=== PATIENT | male | born 1950 | race American Indian/Alaskan Native ===

== ENCOUNTER 2016-09-24 12:53 | Inpatient (IN) | payer MEDICARE ==
[2016-09-24] MEDS ORDERED: MAGNESIUM SULFATE 2GM/50ML 50 ML IV ONE ×2 (13:42→13:59)
[2016-09-24] MEDS ORDERED: ATROVENT IH ONE ×2 (13:51→13:59)
[2016-09-24] MEDS ORDERED: PROVENTIL IH ONE ×3 (13:51→16:21)
[2016-09-24] MEDS ORDERED: DECADRON IV ONE (15:16)
[2016-09-24 15:55] LABS: Basophils % (Auto) 0.3 % (0.0-1.8); Eosinophils % (Auto) 0.3 % (0.0-4.3); Hematocrit 37.4 % (35.5-45.6); Hemoglobin 11.9 gm/dl (11.8-15.2); Mean Corpuscular HGB Conc 32 % (32-34); Mean Corpuscular Hemoglobin 28 pg (28-32); Mean Corpuscular Volume 88 fl (84-94); Platelet Count 192 K/mm3 (140-440); Red Blood Count 4.23 M/mm3 (3.65-5.03); White Blood Count 6.2 K/mm3 (4.5-11.0)
[2016-09-24 16:38] LABS: Blood Urea Nitrogen 9 mg/dL (9-20); Calcium 8.2 mg/dL (8.4-10.2); Carbon Dioxide 21 mmol/L (22-30); Chloride 97.7 mmol/L (98-107); Glucose 137 mg/dL (75-100); Potassium 3.8 mmol/L (3.6-5.0); Sodium 134 mmol/L (137-145)
[2016-09-24 16:45] LABS: Anion Gap 19 mmol/L
--- NOTE | 2016-09-24 18:41 | Cat Scan Report ---
FINAL REPORT EXAM: CT CHEST W CON HISTORY: stridor/wheezing TECHNIQUE: High-resolution helical axial images were obtained of the chest without administration of iodinated contrast. Images are reconstructed in the sagittal and coronal planes. PRIORS: None. FINDINGS: There is a small pericardial effusion. The heart is mildly enlarged. The proximal trachea has an irregular shape. The AP distance is wider and transverse distance measuring 3.1 AP by 1.6 cm transverse. There is a polypoid excrescence in the proximal trachea. Hypo pharyngeal thickening is seen on the upper most image of the chest. There is a retrosternal thyroid. There is a left lower lobe consolidative infiltrate consistent with pneumonia. There is mild right basilar subsegmental atelectasis. Images through the upper abdomen show small bilateral renal cysts. There is multilevel thoracic spondylosis. The thoracic vertebrae are normal in height. There is asymmetric left gynecomastia. IMPRESSION: 1. Abnormal appearing proximal thoracic trachea may be a saber sheath trachea. Also, there is a polypoid excrescence that requires further evaluation with direct visualization. Another consideration would be a tracheal diverticulum. 2. Consolidative infiltrate in the posterior left lower lobe consistent with pneumonia. 3. Hypo pharyngeal thickening. Please see the report for the CT of the neck performed on the same date. 4. Retrosternal thyroid. 5. Asymmetric gynecomastia in the left breast. Further clinical workup to include physical exam and ultrasound recommended. Mammography may also be indicated.
--- NOTE | 2016-09-24 18:43 | Emergency Department Report ---
ED Shortness of Breath HPI - General Chief Complaint: Dyspnea/Respdistress Stated Complaint: PATRIC Time Seen by Provider: 09/24/16 15:15 Source: patient, EMS Mode of arrival: Stretcher Limitations: No Limitations - History of Present Illness Initial Comments: 66-year-old male with a past medical history of COPD, hypertension, and sleep apnea presents to the hospital complaints of shortness of breath or stridor. Patient was sent from his primary care doctor's office. Patient states he has had the exact same loud breathing times one year. Patient states that wheezing worsened today and went to the primary care doctor's office. Received albuterol 5 mg prior to arrival. No complaints of pain. Patient complains of several weeks of cough productive of beige sputum without fever. History of intubation due to 4 months ago. Patient states he had a recent positive sleep study is awaiting CPAP machine. 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 ENT: No ear pain or throat pain Neck: Denies pain Respiratory: As per HPI Cardiovascular: Denies chest pain, palpitations, syncope GI: Denies abdominal pain, nausea, vomiting, diarrhea : Denies dysuria Musculoskeletal: Denies back pain Skin: Denies rash, lesions, erythema Neurologic: Denies headache, numbness, weakness Psychiatric: Denies suicidal ideation, hallucinations ED Past Medical Hx - Past Medical History Hx Hypertension: Yes Hx COPD: Yes Additional medical history: sleep apnea - Social History Smoking Status: Former Smoker Substance Use Type: Alcohol ED Physical Exam - General Limitations: No Limitations - Other Other exam information: General: No limitations, patient is alert in no acute distress Head exam: Atraumatic, normocephalic Eyes exam: Normal appearance ENT: Moist mucous membrane, normal oropharynx Neck exam: Questionable stridor inspiratory sounds with breathing Respiratory exam: Tachypnea, inspiratory and expiratory wheezing Cardiovascular: Normal rate and rhythm, normal heart sounds Abdomen: Soft, nondistended, and nontender, with normal bowel sounds, no rebound, or guarding Extremity: Full range of motion normal inspection no deformity, no calf tenderness or edema Back: Normal Inspection, full range of motion, no tenderness Neurologic: Alert, oriented x3, cranial nerves intact, no motor or sensory deficit Psychiatric: normal affect, normal mood Skin: Warm, dry, intact ED Course Vital Signs 09/24/16 09/24/16 09/24/16 13:49 14:03 15:00 Temperature 97.9 F Pulse Rate 87 82 88 Respiratory 26 H 36 H 40 H Rate Blood Pressure 112/78 141/66 O2 Sat by Pulse 97 97 98 Oximetry 09/24/16 15:43 Temperature Pulse Rate 90 Respiratory 54 H Rate Blood Pressure 145/67 O2 Sat by Pulse 97 Oximetry ED Medical Decision Making - Lab Data Result diagrams: 09/24/16 15:34 09/24/16 15:34 Lab Results 09/24/16 09/24/16 Range/Units 15:34 15:34 WBC 6.2 (4.5-11.0) K/mm3 RBC 4.23 (3.65-5.03) M/mm3 Hgb 11.9 (11.8-15.2) gm/dl Hct 37.4 (35.5-45.6) % MCV 88 (84-94) fl MCH 28 (28-32) pg MCHC 32 (32-34) % RDW 14.0 (13.2-15.2) % Plt Count 192 (140-440) K/mm3 Lymph % (Auto) 9.5 L (13.4-35.0) % Lee % (Auto) 5.1 (0.0-7.3) % Eos % (Auto) 0.3 (0.0-4.3) % Baso % (Auto) 0.3 (0.0-1.8) % Lymph # 0.6 L (1.2-5.4) K/mm3 Lee # 0.3 (0.0-0.8) K/mm3 Eos # 0.0 (0.0-0.4) K/mm3 Baso # 0.0 (0.0-0.1) K/mm3 Seg Neutrophils % 84.8 H (40.0-70.0) % Seg Neutrophils # 5.2 (1.8-7.7) K/mm3 Sodium 134 L (137-145) mmol/L Potassium 3.8 (3.6-5.0) mmol/L Chloride 97.7 L (98-107) mmol/L Carbon Dioxide 21 L (22-30) mmol/L Anion Gap 19 mmol/L BUN 9 (9-20) mg/dL Creatinine 0.6 L (0.8-1.5) mg/dL Estimated GFR > 60 ml/min BUN/Creatinine Ratio 15.00 % Glucose 137 H (75-100) mg/dL Calcium 8.2 L (8.4-10.2) mg/dL - EKG Data -: EKG Interpreted by Me - Radiology Data Radiology results: report reviewed, image reviewed interpreted by me: Chest x-ray portable: Increased interstitial markings CT neck IV contrast: Hypopharyngeal posterior soft tissue frondlike thickening direct visualization recommended. Irregular shape proximal trachea CT chest with contrast: Abnormal appearing approximately thoracic trachea may be a safer sheath trachea. Polypoid excrescence requires direct visualization. Left lower lobe consolidation consistent with pneumonia. Hypopharyngeal thickening. Retrosternal thyroid. Asymmetric gynecomastia - Medical Decision Making Plan to admit patient to the hospital for treatment of COPD exacerbation with pneumonia. Patient has tracheal posterior pharyngeal findings of any further workup. It appears that symptomatically stable per patient - Differential Diagnosis tracheal obstruction, pneumonia, COPD, CHF, bronchitis Critical Care Time: No Critical care attestation.: If time is entered above; I have spent that time in minutes in the direct care of this critically ill patient, excluding procedure time. ED Disposition Clinical Impression: COPD exacerbation, Chronic stridor LLL pneumonia Qualifiers: Pneumonia type: due to unspecified organism Qualified Code(s): J18.9 - Pneumonia, unspecified organism Sleep apnea Qualifiers: Sleep apnea type: unspecified type Qualified Code(s): G47.30 - Sleep apnea, unspecified Disposition: OP ADMITTED IP TO THIS HOSP Is pt being admited?: Yes Condition: Stable Time of Disposition: 18:59 (Dr Tay/hosp)
[2016-09-24] MEDS ORDERED: ROCEPHIN/NS 1 GM/50 ML 50 ML IV ONE (18:49)
--- NOTE | 2016-09-24 18:52 | Cat Scan Report ---
FINAL REPORT EXAM: CT NECK W CON HISTORY: stridor TECHNIQUE: Helical CT was performed from the skull base to the thoracic inlet after the administration of iodinated intravenous contrast. PRIORS: None. FINDINGS: The epiglottis appears normal. There is posterior hypopharyngeal frondlike soft tissue thickening and asymmetry of the piriform sinuses. The thyroid is mildly enlarged. The proximal trachea has an irregular shape. There are no abnormally enlarged lymph nodes. There is ring shaped calcification in the left lobe. The left globe is small. There is diffuse mucosal thickening in the right maxillary sinus and patchy mucosal thickening in the ethmoid air cells. There is multilevel degenerative disc disease of the cervical spine. The parotid and submandibular glands appear normal. IMPRESSION: 1. Hypo pharyngeal posterior soft tissue frondlike thickening. Direct visualization recommended. 2. Irregularly-shaped proximal trachea. Please see the report for the CT of the chest performed on the same day.
--- NOTE | 2016-09-24 19:28 | Admit Criteria Form ---
Admission Criteria Documentation: COPD Clinical Indications for Admission to Inpatient Care (Place 'X' for any and all applicable criteria): Admission is indicated for ANY ONE of the following (1)(2)(3): [X ]I. Acute exacerbation by high-risk comorbidity (e.g., pneumonia, dysrhythmia, heart failure, pleural effusion, pneumothorax) or severe underlying COPD (e.g., steroid dependent) [X ]II. Inpatient admission required rather than observation care (see Chronic Obstructive Pulmonary Disease: Observation Care) because of ANY ONE of the following: [ X]a) New or pre-existing signs or symptoms of COPD (eg, dyspnea or Tachypnea at rest or with minimal activity) that persist despite outpatient and observation care treatment [ ]b) New-onset hypoxemia (room air SaO2 less than 90%, PO2 less than 60 mm Hg (8.0 kPa)) that persists despite outpatient and observation care treatment [ ]c) Worsening of pre-existing hypoxemia (eg, new or increased requirement for supplemental oxygen to maintain oxygenation at baseline level) that persists despite outpatient and observation care treatment, with oxygen treatment needs performable only in acute inpatient setting [ ]d) Hypercarbia (PCO2 greater than 40 mm Hg (5.3 kPa))-induced respiratory acidosis (pH less than 7.35) that persists despite outpatient and observation care treatment [ ]e) Supplemental oxygen or respiratory treatments for over 24 hours that are performable only in acute inpatient setting [ ]f) Chest tube placement with active evacuation (e.g., suction, drainage) (5) [ ]g) Other condition, treatment or monitoring requiring inpatient admission [ ]III. Planned invasive surgical or diagnostic procedures requiring acute- care hospitalization [ ]IV. Acute respiratory failure (e.g., uncompensated hypercarbia, severe hypoxemia) [ ]V. Severe comorbid condition (e.g., severe steroid myopathy, acute vertebral fracture) that has acutely worsened pulmonary function [ ]. Confusion state, lethargy, obtundation, stupor or coma Extended stay beyond goal length of stay may be needed for (31)(32): [ ]a ) Respiratory Failure. [ ]b) Severe or persisting hypoxemia or hypercarbia [ ]c) Severe or persistent dyspnea [ ]d) Comorbidities (e.g. chronic heart failure, atrial fibrillation with rapid response, pneumonia) [ ]e) Malnutrition The original [facility] content created by [facility] has been revised. The portions of the content which have been revised are identified through the use of italic text or in bold, and [facility] has neither reviewed nor approved the modified material. All other unmodified content is copyright [facility]. Please see references footnoted in the [facility] Admission Criteria Met: Yes
[2016-09-24] MEDS ORDERED: ZITHROMAX 500 MG in NACL 0.9% 250ML 250 ML IV ONE (19:49)
--- NOTE | 2016-09-24 22:55 | Event Note ---
Date: 09/24/16 See H/p in reports LLL Pneumonia Copd exacerbation LEONARDO HTN
[2016-09-24] MEDS ORDERED: PROAIR IH PRN (23:04)
[2016-09-24] MEDS ORDERED: DUONEB 0.5 MG-3 MG/3 ML SOLN IH PRN (23:09)
[2016-09-24 23:57] LABS: ISTAT Base Excess -3; ISTAT HCO3 22.9; ISTAT PH 7.365 (7.35-7.45); ISTAT PO2 73 (80-105); ISTAT SO2 94; ISTAT TCO2 24
[2016-09-24] MEDS ORDERED: MILK OF MAGNESIA PO PRN (23:57)
[2016-09-24] MEDS ORDERED: AMBIEN PO PRN (23:57)
[2016-09-24] MEDS ORDERED: DULCOLAX PR PRN (23:57)
[2016-09-24] MEDS ORDERED: DILAUDID IV PRN (23:57)
[2016-09-24] MEDS ORDERED: PERCOCET 5/325 PO PRN (23:57)
[2016-09-24] MEDS ORDERED: TYLENOL PO PRN (23:57)
[2016-09-24] MEDS ORDERED: ZOFRAN IV PRN (23:57)
[2016-09-25] MEDS ORDERED: PROVENTIL IH PRN (01:10)
[2016-09-25] MEDS ORDERED: HCTZ ONE (01:12)
[2016-09-25] MEDS: DUONEB 0.5 MG-3 MG/3 ML SOLN IH SCH ×4 (01:39→19:52)
[2016-09-25 05:26] LABS: Hematocrit 38.4 % (35.5-45.6); Hemoglobin 12.3 gm/dl (11.8-15.2); Mean Corpuscular HGB Conc 32 % (32-34); Mean Corpuscular Hemoglobin 28 pg (28-32); Mean Corpuscular Volume 88 fl (84-94); Platelet Count 226 K/mm3 (140-440); Red Blood Count 4.38 M/mm3 (3.65-5.03); Red Cell Distribution Width 14.2 % (13.2-15.2); White Blood Count 8.6 K/mm3 (4.5-11.0)
[2016-09-25 05:39] LABS: Alanine Aminotransferase 22 units/L (7-56); Albumin/Globulin Ratio 1.3 %; Alkaline Phosphatase 64 units/L (35-129); Bilirubin,Total 0.3 mg/dL (0.1-1.2); Blood Urea Nitrogen 9 mg/dL (9-20); Calcium 8.7 mg/dL (8.4-10.2); Carbon Dioxide 24 mmol/L (22-30); Chloride 99.8 mmol/L (98-107); Glucose 133 mg/dL (75-100); Potassium 4.4 mmol/L (3.6-5.0); Sodium 138 mmol/L (137-145)
[2016-09-25 05:40] LABS: Anion Gap 19 mmol/L
[2016-09-25 07:31] LABS: Basophils % (Manual) 0 % (0.0-1.8); Blastocytes % (Manual) 0 %; Eosinophils % (Manual) 0 % (0.0-4.3)
[2016-09-25 07:32] LABS: Anisocytosis 1+; Diff Status Complete; Hypochromasia Few
[2016-09-25] MEDS ORDERED: S2 RACEPINEPHRINE 2.25% IH ONE (07:45)
[2016-09-25] MEDS ORDERED: NACL 0.9% NEBU ONE (07:46)
[2016-09-25 08:11] LABS: ISTAT Base Excess 2; ISTAT HCO3 27.6; ISTAT PCO2 46.6 (35-45); ISTAT PO2 67 (80-105); ISTAT SO2 93; ISTAT TCO2 29
--- NOTE | 2016-09-25 08:26 | XRay Report ---
AP CHEST :09/24/16 CLINICAL: Shortness of breath. COMPARISON:None. FINDINGS: Cardiomegaly and central vascular congestion. Basal subsegmental atelectasis and mild interstitial opacities. The bones and soft tissues are normal. IMPRESSION: Mild CHF with early dependent interstitial pulmonary edema.
--- NOTE | 2016-09-25 10:02 | History and Physical Report ---
CHIEF COMPLAINT: Increasing stridor and shortness of breath for one week. HISTORY OF PRESENT ILLNESS: A 66-year-old male with past medical history of COPD, hypertension, sleep apnea, comes into the ER because of increasing shortness of breath and stridor. He was sent from [facility]. The patient has been having loud breathing for the last 1 year. The patient also has cough productive of mucoid sputum. No fever, no chills. Has taken ibuprofen with no relief. The patient also has a positive sleep study and is awaiting a CPAP machine. PAST MEDICAL HISTORY: As mentioned, hypertension, COPD, and sleep apnea. PAST SURGICAL HISTORY: None. SOCIAL HISTORY: Former smoker, alcohol occasionally. FAMILY HISTORY: Significant for hypertension. REVIEW OF SYSTEMS: Significant for recurrent stridor and significant shortness of breath. Now with shortness of breath and stridor. Cough productive of mucoid sputum. No fever, no chills. Otherwise, review of systems is essentially negative. PHYSICAL EXAMINATION: GENERAL: Elderly male, cooperative during examination in moderate respiratory distress, 50% Ventimask on the face. VITAL SIGNS: Blood pressure is 112/78, temperature is 97.9, pulse is 87, respirations are 26, sats are 97%. HEENT: Unremarkable. Pupils equal and reactive. NECK: Supple. RESPIRATORY: No accessory muscles of respiration are prominent. LUNGS: Bilateral inspiratory and expiratory rhonchi present. Stridor present. CARDIOVASCULAR: S1, S2 heard. No gallop, no murmur, no rub. Apical impulse in the left fifth intercostal space and midclavicular line. ABDOMEN: Soft and benign. No hepatosplenomegaly. No guarding. No rigidity. Hernial orifices are normal. EXTREMITIES: Good pedal pulses. No pedal edema. DIAGNOSTIC STUDIES: CT neck and chest shows laryngeal polyp and left lower lobe consolidation with pneumonia. Also, consistent with COPD. LABORATORY DATA: Significant for white count of 6200, H and H is 11.9 and 37.4, platelet count is 192,000. ABG significant for pH of 7.365, pCO2 of 40, pO2 of 73, bicarbonate of 22, total CO2 is 24, FiO2 of 30. ASSESSMENT AND PLAN: 1. Left lower lobe pneumonia. The patient started on IV Levaquin 750 mg q. 24. 2. Chronic obstructive pulmonary disease exacerbation. The patient started on DuoNeb, Solu-Medrol, and IV Levaquin. Solu-Medrol at 80 mg IV q. 8h. 3. Tracheal polyp which may be causing the stridor. Requested ____ to see the patient for possible bronchoscopy and evaluation of the polyp versus biopsy of the polyp. The patient has a chronic stridor. 4. Obstructive sleep apnea, CPAP/BiPAP as necessary. 5. Deep venous thrombosis prophylaxis, Lovenox 40 mg subcutaneous daily. 6. Hypertension. Add losartan 40 mg p.o. daily. JOB# [id number] RAGHU/NTS
[2016-09-25] MEDS: FLONASE NS SCH (10:07)
[2016-09-25] MEDS: COZAAR PO SCH (10:40)
[2016-09-25] MEDS: K-DUR PO SCH (10:41)
[2016-09-25] MEDS: LASIX PO SCH (10:41)
[2016-09-25] MEDS: HCTZ PO SCH (10:42)
[2016-09-25] MEDS: LOVENOX SUB-Q SCH (10:42)
[2016-09-25] MEDS: LEVAQUIN 750MG/150ML 150 ML IV SCH (10:43)
[2016-09-25] MEDS ORDERED: FLUARIX QUAD 2016-2017(36 MOS+) IM ONE (12:00)
[2016-09-25] MEDS ORDERED: PNEUMOVAX 23 IM ONE (12:00)
--- NOTE | 2016-09-25 14:01 | Consultation ---
History of Present Illness Consult date: 09/25/16 Requesting physician: DORY REYES Reason for consult: dyspnea, other (abnormal chest CT neck CT) History of present illness: Called by [facility] to see a patient with suspected stridor. Patient has migrated here from [place]. Has known COPD. Smoked for 45 years and quit about 13 months ago. Admitted with COPD exacerbation. Per patient had some form of procedure in November of 2014 and since then has made this stridor like noise on occasion. Worse with exertion, he thinks. He has been evaluated by Dr. Jesika Ramos and was told he needed a sleep study. Apparently had a CPAP machine while in [place] but lost funding so lost machine. I was asked to evaluate secondary to upper airway noise. Patient is a very poor historian but does not appear that he has had any airway evaluation before. Family at the bedside states that he was intubated in the past, reasons they do not know. Remainder is negative. Past History Past Medical History: COPD, hypertension Past Surgical History: Other (unknown) Social history: smoking (quit 13 months ago, smoked for 45 years) Medications and Allergies Allergies Allergy/AdvReac Type Severity Reaction Status Date / Time No Known Allergies Allergy Verified 09/24/16 13:58 Home Medications Medication Instructions Recorded Confirmed Last Taken Type ALBUTEROL Inhaler [Proair] 2 puff IH QID PRN 09/24/16 09/24/16 Unknown History Fluticasone [Flonase] 1 spray NS QDAY 09/24/16 09/24/16 Unknown History Hydrochlorothiazide [HCTZ] 25 mg PO QDAY 09/24/16 09/24/16 Unknown History Lasix TAB 40 mg 09/24/16 Unknown History Losartan 50 09/24/16 Unknown History Montelukast 10 mg 09/24/16 Unknown History Potassium 20 mg 09/24/16 Unknown History prednisoLONE 09/24/16 Unknown History Active Meds: Active Medications Acetaminophen (Tylenol) 650 mg PO Q4H PRN PRN Reason: Pain MILD(1-3)/Fever >100.5/SOLIS Albuterol (Proventil) 2.5 mg IH QIDRT PRN PRN Reason: Shortness Of Breath Albuterol/Ipratropium (Duoneb 0.5 Mg-3 Mg/3 Ml Soln) 1 ampul IH Q6HRT LIZ Last Admin: 09/25/16 13:51 Dose: 1 ampul Bisacodyl (Dulcolax) 10 mg GA QDAY PRN PRN Reason: Constipation unrelieved by MOM Enoxaparin Sodium (Lovenox) 40 mg SUB-Q QDAY [facility] Last Admin: 09/25/16 10:42 Dose: 40 mg Fluticasone Propionate (Flonase) 50 mcg NS QDAY [facility] Furosemide (Lasix) 40 mg PO QDAY [facility] Last Admin: 09/25/16 10:41 Dose: 40 mg Hydrochlorothiazide (Hctz) 25 mg PO QDAY [facility] Last Admin: 09/25/16 10:42 Dose: 25 mg Hydromorphone HCl (Dilaudid) 0.5 mg IV Q3H PRN PRN Reason: Pain , Severe (7-10) Levofloxacin/Dextrose (Levaquin 750mg/150ml) 150 mls @ 100 mls/hr IV Q24HR [facility] PRN Reason: Protocol Last Admin: 09/25/16 10:43 Dose: 100 mls/hr Losartan Potassium (Cozaar) 100 mg PO QDAY [facility] Last Admin: 09/25/16 10:40 Dose: 100 mg Magnesium Hydroxide (Milk Of Magnesia) 30 ml PO Q4H PRN PRN Reason: Constipation Methylprednisolone Sodium Succinate (Solu-Medrol) 60 mg IV Q8HR [facility] Methylprednisolone Sodium Succinate (Solu-Medrol) 80 mg IV Q6H [facility] Stop: 09/26/16 00:01 Last Admin: 09/25/16 10:42 Dose: 80 mg Montelukast Sodium (Singulair) 10 mg PO 1800 [facility] Ondansetron HCl (Zofran) 4 mg IV Q8H PRN PRN Reason: N/V unrelieved by Reglan Oxycodone/Acetaminophen (Percocet 5/325) 1 tab PO Q6H PRN PRN Reason: Pain, Moderate (4-6) Potassium Chloride (K-Dur) 20 meq PO QDAY [facility] Last Admin: 09/25/16 10:41 Dose: 20 meq Zolpidem Tartrate (Ambien) 5 mg PO QHS PRN PRN Reason: Insomnia Review of Systems All systems: negative Physical Examination Vital signs: Vital Signs Temp Pulse Resp BP Pulse Ox 97.9 F 87 26 H 112/78 97 09/24/16 13:49 09/24/16 13:49 09/24/16 13:49 09/24/16 13:49 09/24/16 13:49 General appearance: no acute distress, alert Eyes: other (strabismus, severe) ENT: other (very poor dentition, would not allow malempatti exam as he would not cooperate) Ascultation: Bilateral: diminished breath sounds Percussion: Bilateral: not dull Tactile fremitus: Bilateral: normal Cardiovascular: regular rate and rhythm Gastrointestinal: normoactive bowel sounds Results - Laboratory Findings CBC and BMP: 09/25/16 04:49 09/25/16 04:49 ABG POC ABG pH 7.380 (7.35-7.45) 09/25/16 08:05 POC ABG pCO2 46.6 (35-45) H 09/25/16 08:05 POC ABG pO2 67 (80-105) L 09/25/16 08:05 POC ABG HCO3 27.6 09/25/16 08:05 POC ABG Total CO2 29 09/25/16 08:05 POC ABG O2 Sat 93 09/25/16 08:05 Abnormal lab findings: Abnormal Labs 09/25/16 09/25/16 09/25/16 04:49 04:49 08:05 Seg Neuts % (Manual) 78.0 H Lymphocytes % (Manual) 10.0 L Lymphocytes # (Manual) 0.9 L POC ABG pCO2 46.6 H POC ABG pO2 67 L Creatinine 0.5 L Glucose 133 H - Diagnostic Findings CT scan - chest: image reviewed Additional studies: Reviewed report of CT of neck Assessment and Plan 66 y/o male with COPD admitted [employer] exacerbation and concern for stridor. 1. This sound, upper airway noise, that the patient is making has been present for several months. After reviewing the CT of the neck and chest, I feel that ENT evaluation first would be best. I attempted several times to explain to the patient that seeing the ENT physician at this point would not be beneficial and that they could follow up as an outpatient. If the ENT doesn't feel there is anything to be done, then Dr. Ramos could pursue bronchoscopy. All other treatment per primary team. I would not continue racemic epi treatments as this will likely not help. My guess would be that he has some fixed upper airway defect. I have encouraged him to obtain his outside records and present them to his pulmonary doctor here. Will sign off. Call if questions.
[2016-09-25] MEDS ORDERED: SINGULAIR PO SCH (18:00)
--- NOTE | 2016-09-25 19:39 | Progress Note ---
Assessment and Plan Assessment and plan: Since assisted 6-year-old male with history of COPD, migrated to the [place] follows with Dr. Melissa Gonsalez and for about a year has been having upper airway noise with breathing. * COPD exacerbation * Deviated trachea of unknown etiology * Pleural effusion * Acute on chronic hypoxic respiratory failure Plan * Patient did and did have a rapid response called due to increased work of breathing with worsening wheezing on top of abnormal upper airway noise she appears to be coming from an abnormally noted trachea CT. Patient states that this is been going on for a year. Although today was worse as he did have audible wheezing in addition. Is a poor historian. He did receive a dose for significant epinephrine. Was also given systemic steroids. * At this point we'll taper steroids. * Pulmonary input appreciated * Continue oxygen * We'll attempt to obtain an ENT evaluation from family that we do not have ENT. Sometimes they have one who is available to come by. If not disabled to come by Will recommend patient discharge was clinically stable and full outpatient with ENT and this can be arranged by the primary physician on the mill dresser. * Continue DuoNeb * DVT and GI prophylaxis History Interval history: Patient seen and examined this morning was in moderate respiratory distress, wheezing with a rapid reponse called. Denies any chest pain, nausea, vomiting, diarrhea No fever noted blood pressure controlled No adverse events reported to me by nursing staff Hospitalist Physical - Physical exam Narrative exam: VITAL SIGNS: Reviewed. GENERAL: The patient appeared well nourished and normally developed. In acute respiratory distress Vital signs as documented. HEAD: No signs of head trauma. EYES: Pupils are equal. Extraocular motions intact. EARS: Hearing grossly intact. MOUTH: Oropharynx is normal. NECK: No adenopathy, no JVD. CHEST: Chest with wheezing breath sounds bilaterally. Increased assessment muscle use and stridor CARDIAC: Regular rate and rhythm. S1 and S2, without murmurs, gallops, or rubs. VASCULAR: No Edema. Peripheral pulses normal and equal in all extremities. ABDOMEN: Soft, without detectable tenderness. No sign of distention. No rebound or guarding, and no masses palpated. Bowel Sounds normal. MUSCULOSKELETAL: Good range of motion of all major joints. Extremities without clubbing, cyanosis or edema. NEUROLOGIC EXAM: Alert and oriented x 3. No focal sensory or strength deficits. Speech normal. Follows commands. PSYCHIATRIC: Mood anxious SKIN: No rash or lesions. - Constitutional Vitals: Temp Pulse Resp BP Pulse Ox 97.8 F 96 H 22 153/64 95 09/25/16 15:37 09/25/16 15:37 09/25/16 15:37 09/25/16 15:37 09/25/16 15:37 Results - Labs CBC & Chem 7: 09/25/16 04:49 09/25/16 04:49 Labs: Laboratory Last Values WBC 8.6 K/mm3 (4.5-11.0) 09/25/16 04:49 RBC 4.38 M/mm3 (3.65-5.03) 09/25/16 04:49 Hgb 12.3 gm/dl (11.8-15.2) 09/25/16 04:49 Hct 38.4 % (35.5-45.6) 09/25/16 04:49 MCV 88 fl (84-94) 09/25/16 04:49 MCH 28 pg (28-32) 09/25/16 04:49 MCHC 32 % (32-34) 09/25/16 04:49 RDW 14.2 % (13.2-15.2) 09/25/16 04:49 Plt Count 226 K/mm3 (140-440) 09/25/16 04:49 Lymph % (Auto) 9.5 % (13.4-35.0) L 09/24/16 15:34 [place] % (Auto) 5.1 % (0.0-7.3) 09/24/16 15:34 Eos % (Auto) 0.3 % (0.0-4.3) 09/24/16 15:34 Baso % (Auto) 0.3 % (0.0-1.8) 09/24/16 15:34 Lymph # 0.6 K/mm3 (1.2-5.4) L 09/24/16 15:34 [place] # 0.3 K/mm3 (0.0-0.8) 09/24/16 15:34 Eos # 0.0 K/mm3 (0.0-0.4) 09/24/16 15:34 Baso # 0.0 K/mm3 (0.0-0.1) 09/24/16 15:34 Add Manual Diff Complete 09/25/16 04:49 Total Counted 100 09/25/16 04:49 Seg Neutrophils % Distance Learning Administrator 09/25/16 04:49 Seg Neuts % (Manual) 78.0 % (40.0-70.0) H 09/25/16 04:49 Band Neutrophils % 10.0 % 09/25/16 04:49 Lymphocytes % (Manual) 10.0 % (13.4-35.0) L 09/25/16 04:49 Reactive Lymphs % (Man) 0 % 09/25/16 04:49 Monocytes % (Manual) 2.0 % (0.0-7.3) 09/25/16 04:49 Eosinophils % (Manual) 0 % (0.0-4.3) 09/25/16 04:49 Basophils % (Manual) 0 % (0.0-1.8) 09/25/16 04:49 Metamyelocytes % 0 % 09/25/16 04:49 Myelocytes % 0 % 09/25/16 04:49 Promyelocytes % 0 % 09/25/16 04:49 Blast Cells % 0 % 09/25/16 04:49 Nucleated RBC % Not Reportable 09/25/16 04:49 Seg Neutrophils # 5.2 K/mm3 (1.8-7.7) 09/24/16 15:34 Seg Neutrophils # Man 6.7 K/mm3 (1.8-7.7) 09/25/16 04:49 Band Neutrophils # 0.9 K/mm3 09/25/16 04:49 Lymphocytes # (Manual) 0.9 K/mm3 (1.2-5.4) L 09/25/16 04:49 Abs React Lymphs (Man) 0.0 K/mm3 09/25/16 04:49 Monocytes # (Manual) 0.2 K/mm3 (0.0-0.8) 09/25/16 04:49 Eosinophils # (Manual) 0.0 K/mm3 (0.0-0.4) 09/25/16 04:49 Basophils # (Manual) 0.0 K/mm3 (0.0-0.1) 09/25/16 04:49 Metamyelocytes # 0.0 K/mm3 09/25/16 04:49 Myelocytes # 0.0 K/mm3 09/25/16 04:49 Promyelocytes # 0.0 K/mm3 09/25/16 04:49 Blast Cells # 0.0 K/mm3 09/25/16 04:49 WBC Morphology Not Reportable 09/25/16 04:49 Hypersegmented Neuts Not Reportable 09/25/16 04:49 Hyposegmented Neuts Not Reportable 09/25/16 04:49 Hypogranular Neuts Not Reportable 09/25/16 04:49 Smudge Cells Not Reportable 09/25/16 04:49 Toxic Granulation Not Reportable 09/25/16 04:49 Toxic Vacuolation Not Reportable 09/25/16 04:49 Dohle Bodies Not Reportable 09/25/16 04:49 Pelger-Huet Anomaly Not Reportable 09/25/16 04:49 Tobias Rods Not Reportable 09/25/16 04:49 Platelet Estimate Appears normal 09/25/16 04:49 Clumped Platelets Not Reportable 09/25/16 04:49 Plt Clumps, EDTA Not Reportable 09/25/16 04:49 Large Platelets Not Reportable 09/25/16 04:49 Giant Platelets Not Reportable 09/25/16 04:49 Platelet Satelliting Not Reportable 09/25/16 04:49 Plt Morphology Comment Not Reportable 09/25/16 04:49 RBC Morphology Not Reportable 09/25/16 04:49 Dimorphic RBCs Not Reportable 09/25/16 04:49 Polychromasia Not Reportable 09/25/16 04:49 Hypochromasia Few 09/25/16 04:49 Poikilocytosis Not Reportable 09/25/16 04:49 Anisocytosis 1+ 09/25/16 04:49 Microcytosis Not Reportable 09/25/16 04:49 Macrocytosis Not Reportable 09/25/16 04:49 Spherocytes Not Reportable 09/25/16 04:49 Pappenheimer Bodies Not Reportable 09/25/16 04:49 Sickle Cells Not Reportable 09/25/16 04:49 Target Cells Not Reportable 09/25/16 04:49 Tear Drop Cells Not Reportable 09/25/16 04:49 Ovalocytes Not Reportable 09/25/16 04:49 Helmet Cells Not Reportable 09/25/16 04:49 [place] Bodies Not Reportable 09/25/16 04:49 [place] Rings Not Reportable 09/25/16 04:49 [place] Cells Not Reportable 09/25/16 04:49 Bite Cells Not Reportable 09/25/16 04:49 Crenated Cell Not Reportable 09/25/16 04:49 Elliptocytes Not Reportable 09/25/16 04:49 Acanthocytes (Spur) Not Reportable 09/25/16 04:49 Rouleaux Not Reportable 09/25/16 04:49 Hemoglobin C Crystals Not Reportable 09/25/16 04:49 Schistocytes Not Reportable 09/25/16 04:49 Malaria parasites Not Reportable 09/25/16 04:49 [place] Bodies Not Reportable 09/25/16 04:49 Hem Pathologist Commnt No 09/25/16 04:49 POC ABG pH 7.380 (7.35-7.45) 09/25/16 08:05 POC ABG pCO2 46.6 (35-45) H 09/25/16 08:05 POC ABG pO2 67 (80-105) L 09/25/16 08:05 POC ABG HCO3 27.6 09/25/16 08:05 POC ABG Total CO2 29 09/25/16 08:05 POC ABG O2 Sat 93 09/25/16 08:05 POC ABG Base Excess 2 09/25/16 08:05 FiO2 28 % 09/25/16 08:05 Sodium 138 mmol/L (137-145) 09/25/16 04:49 Potassium 4.4 mmol/L (3.6-5.0) 09/25/16 04:49 Chloride 99.8 mmol/L (98-107) 09/25/16 04:49 Carbon Dioxide 24 mmol/L (22-30) 09/25/16 04:49 Anion Gap 19 mmol/L 09/25/16 04:49 BUN 9 mg/dL (9-20) 09/25/16 04:49 Creatinine 0.5 mg/dL (0.8-1.5) L 09/25/16 04:49 Estimated GFR > 60 ml/min 09/25/16 04:49 BUN/Creatinine Ratio 18.00 % 09/25/16 04:49 Glucose 133 mg/dL (75-100) H 09/25/16 04:49 Calcium 8.7 mg/dL (8.4-10.2) 09/25/16 04:49 Total Bilirubin 0.3 mg/dL (0.1-1.2) 09/25/16 04:49 AST 18 units/L (5-40) 09/25/16 04:49 ALT 22 units/L (7-56) 09/25/16 04:49 Alkaline Phosphatase 64 units/L (35-129) 09/25/16 04:49 Total Protein 7.0 g/dL (6.3-8.2) 09/25/16 04:49 Albumin 4.0 g/dL (3.9-5) 09/25/16 04:49 Albumin/Globulin Ratio 1.3 % 09/25/16 04:49 - Imaging and Cardiology Chest x-ray: image reviewed
[2016-09-26] MEDS ORDERED: APRESOLINE IV PRN (00:45)
[2016-09-26] MEDS: DUONEB 0.5 MG-3 MG/3 ML SOLN IH SCH ×3 (02:03→13:47)
--- NOTE | 2016-09-26 11:33 | Discharge Summary ---
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 per pulmonology Dr. Thonre: "1. This sound, upper airway noise, that the patient is making has been present for several months. After reviewing the CT of the neck and chest, I feel that ENT evaluation first would be best. I attempted several times to explain to the patient that seeing the ENT physician at this point would not be beneficial and that they could follow up as an outpatient. If the ENT doesn't feel there is anything to be done, then Dr. Ramos could pursue bronchoscopy. All other treatment per primary team. I would not continue racemic epi treatments as this will likely not help. My guess would be that he has some fixed upper airway defect. I have encouraged him to obtain his outside records and present them to his pulmonary doctor here. Will sign off. Call if questions." Acute COPD exacerbation Deviated trachea of unknown etiology Pleural effusion Acute on chronic hypoxic respiratory failure Plan Outpatient ENT Time of discharge 40 minutes Disposition: DISCHARGED TO HOME OR SELFCARE Core Measure Documentation - Palliative Care Palliative Care/ Comfort Measures: Not Applicable - Core Measures Any of the following diagnoses?: none - VTE Discharge Requirements Deep Vein Thrombosis/Pulmonary Embolism Present on Admission: No Has pt received <5 days of overlap therapy or INR<2.0: No Anticoagulant overlap therapy prescribed at discharge: No Contraindication No Overlap Therapy order at DC: Not Indicated Exam - Physical Exam Narrative exam: GEN: WDWN, NAD, AWAKE, ALERT, ORIENTATED 3 HEENT: NCAT, PERRL, EOMI, OP CLEAR NECK: SUPPLE, NO THYROMEGALY, NO JVD, NO LAD CVS: RRR, NORMAL S1S2 LUNGS/CHEST: Upper airway wheezing, NORMAL CHEST EXPANSION B, GOOD AIR ENTRY B ABD: SOFT NTND, GBS, NO REBOUND OR GUARDING MSK: FROM X 4 EXTREMITIES NEURO: CN 2-12 GROSSLY INTACT, NO FOCAL DEFICITS PSY: CALM - Constitutional Vitals: Temp Pulse Resp BP Pulse Ox 97.4 F L 83 24 168/97 95 09/26/16 07:52 09/26/16 07:52 09/26/16 07:52 09/26/16 07:52 09/26/16 08:32 Plan Activity: advance as tolerated (no strenous activites until cleared by PCP. ) Diet: low salt Follow up with: SHARLENE SOSA MD [Primary Care Provider] - 3-5 Days JAYLEN WILSON MD [Staff Physician] - 7 Days Prescriptions: RX: Losartan [Cozaar] 50 mg PO QDAY #30 tablet RX: Ipratropium/Albuterol Sulfate [Duoneb 0.5 mg-3 mg/3 ml Soln] 1 ampul IH Q6HRT #30 ampul.neb RX: Potassium Chloride [K-Dur] 20 meq PO QDAY #30 tablet RX: Furosemide [Lasix TAB] 40 mg PO QDAY #30 tablet RX: Levofloxacin [Levaquin TAB] 750 mg PO QDAY #7 tablet RX: methylPREDNISolone [Medrol Dose Srinivasan] 1 dose PO DAILY #1 pack RX: Montelukast [Singulair] 10 mg PO DAILY #30 tablet RX: ALBUTEROL NEB's [Proventil 0.083% NEBS] 2.5 mg IH QIDRT PRN #30 nebu PRN Reason: Shortness Of Breath
[2016-09-26] MEDS: HCTZ PO SCH (11:35)
[2016-09-26] MEDS: COZAAR PO SCH (11:36)
[2016-09-26] MEDS: LASIX PO SCH (11:36)
[2016-09-26] MEDS: K-DUR PO SCH (11:36)
[2016-09-26] MEDS: FLONASE NS SCH (11:37)
[2016-09-26] MEDS: LOVENOX SUB-Q SCH (11:38)
[2016-09-26] MEDS: LEVAQUIN 750MG/150ML 150 ML IV SCH (11:38)
[2016-09-26 11:39] VITALS: BP 138/88
[2016-09-27] MEDS ORDERED: LEVAQUIN PO SCH (10:00)
--- NOTE | 2016-10-02 08:48 | Query- Pneumonia Documented ---
Akhil Linn Date:_10/02/16 Mold Maintenance Technician/CDS:Brice Huerta/[place] Phone#:_[phone] Exercise your independent professional judgment when responding to query. Questions asked do not imply a particular answer is desired or expected. We greatly appreciate your clarification on this issue. Clinical Documentation States: 66 Y/O male admitted on 09/24/16 with History of COPD, HTN, Sleep apnea presents with increasing shortness of breath and stridor with cough productive of mucoid sputum. Clinical Findings Show: Antibiotics: IV Levaquin, Ceftriaxone, azithromycin Chest Imaging: Left lower lobe pneumonia Please further specify known or suspected Etiology: [ ] Aspiration Pneumonia [ ] Gram Negative Pneumonia [ ] Gram Positive Pneumonia [ ] Pseudomonas Pneumonia [ ] MRSA - related Pneumonia [ ] Viral Pneumonia [ ] Candidal Pneumonia [ ] Other: [x ] Unable to determine Present on Admission: [x ] Yes (Y) [ ] Clinically undeterminable (W) [ ] No (N) Please also document response in your Progress Notes and/or Discharge Summary and indicate if the condition was present on admission. TAMD
== END 2016-09-26 15:10 | disposition home or self-care (01) | DRG 193 ==
LOC: ED 12:53 → 3A 23:57
PROVIDERS: ADMIT Internal Medicine; ATTEND Internal Medicine
PROC: 4A033R1 Measurement of Arterial Saturation, Peripheral, Percutaneous Approach (ICD-10-PCS; 2016-09-24)
PROC: 5A09357 Assistance with Respiratory Ventilation, Less than 24 Consecutive Hours, Continuous Positive Airway Pressure (ICD-10-PCS; principal; 2016-09-26)
DX: J18.9 Pneumonia, unspecified organism (principal); J96.21 Acute and chronic respiratory failure with hypoxia; J44.1 Chronic obstructive pulmonary disease with (acute) exacerbation; J90 Pleural effusion, not elsewhere classified; J38.1 Polyp of vocal cord and larynx; I10 Essential (primary) hypertension; G47.33 Obstructive sleep apnea (adult) (pediatric); J39.8 Other specified diseases of upper respiratory tract; Z87.891 Personal history of nicotine dependence; Z82.49 Family history of ischemic heart disease and other diseases of the circulatory system
CPT/HCPCS: 36415; 36600; 70491; 71010; 71260; 80048; 80053; 82803; 85007; 85025; 87040; 90686; 90732; 93005; 93010; 94640; 94660; 94760; 96365; 96366; 96367; 96368; 96375; J0360; J0456; J0696; J1100; J1650; J1956; J2920; J2930; J3475; J7050; Q9967